=== PATIENT | female | born 1980 | race Caucasian/White ===

== ENCOUNTER 2022-12-31 15:18 | Inpatient (IN) ==
[2022-12-31] MEDS ORDERED: SODIUM CHLORIDE 0.9% 1000ML 500 ML IV ONE (15:43)
[2022-12-31] MEDS ORDERED: ONDANSETRON INJ 2 MG/ML 2 ML VIAL IV STA (15:43)
[2022-12-31] MEDS ORDERED: HYDROmorphone INJ 0.5 MG/0.5 ML SYR IV STA (15:43)
--- NOTE | 2022-12-31 15:45 | Emergency Department Note ---
History of Present Illness General Chief complaint: Urinary Symptoms Stated complaint: KIDNEY STONE, PAIN LEFT SIDE Time Seen by Provider: 12/31/22 15:28 History of Present Illness Maximum Pain Intensity: 5 This is a 42-year-old female with a history of multiple myeloma, Mariella's, hysterectomy, endometrial ablation that presents to the emergency department via private vehicle with complaints of "left flank pain". The patient notes that she noticed last Sunday some hematuria but that seemed to have resolved. She then notes that she presented to a walk-in clinic on the following Sunday and had a urinalysis performed and was informed there is no infection. She denies any known history of kidney stones. She then notes that this past Sunday/ she began with some left flank pain that was brief and then resolved. Then she notes at 6 AM today the pain was severe in the left flank region that prompted her to present to [facility] emergency department in [facility]. She notes that she was evaluated there and had a CT scan performed. The CT scan of the abdomen/pelvis she notes revealed a 7 mm stone. She states that she was provided Flomax, IV analgesia, IV antiemetics, IV hydration and discharged home. She notes that she tried the prescribed medication for her pain as well as nausea medication however continued to vomit. She then presented here for further evaluation and management. The patient denies any fevers but does feel warm. She has associated nausea, vomiting and diarrhea. Home Medications Medication Instructions Recorded Confirmed Type azelastine 137 mcg (0.1 %) nasal 1 spray intranasal BID PRN 12/31/22 12/31/22 History spray aerosol Congestion meclizine 25 mg tablet 25 mg PO Q6H PRN Dizziness 12/31/22 12/31/22 History semaglutide 0.25 mg or 0.5 mg (2 0 mg subcut WK 12/31/22 12/31/22 History mg/3 mL) subcutaneous pen injector Allergies Allergy/AdvReac Type Severity Reaction Status Date / Time carbamazepine [From Tegretol] Allergy Severe Anaphylaxis Verified 12/31/22 17:21 Past Med/Surg History Medical History Hx of multiple myeloma Surgical History History of endometrial ablation Hx of hysterectomy Social History Smoking Status: Never smoker Preferred Language: Kinyarwanda Feels Safe at Home: Yes Review of Systems A total of 10 systems reviewed and were otherwise negative Physical Exam Vital Signs Vital Signs - 24 hr 12/31/22 15:21 12/31/22 15:43 12/31/22 15:45 Temperature 36.6 C Temperature Source Temporal Artery Scan Pulse Rate 98 H Pulse Rate [Finger] 84 Pulse Rate from SpO2 Sensor Respiratory Rate 18 16 Respiratory Effort / Characteristics Non-Labored Spontaneous Respiratory Depth Normal Respiratory Pattern Regular Blood Pressure 115/82 Blood Pressure [Left Arm] 104/66 Blood Pressure Mean 93 Blood Pressure Mean [Left Arm] 78 Pulse Oximetry 100 97 99 Oxygen Delivery Method Room Air Room Air Sepsis Recent Fever Within 48 Hours No Sepsis New/Unexplained Change in Mental Status N/A Sepsis Action Taken by Nursing No Action Required 12/31/22 16:39 12/31/22 15:57 12/31/22 16:00 Temperature Temperature Source Pulse Rate 82 80 Pulse Rate [Finger] Pulse Rate from SpO2 Sensor 81 Respiratory Rate 19 Respiratory Effort / Characteristics Respiratory Depth Respiratory Pattern Blood Pressure 113/81 Blood Pressure [Left Arm] Blood Pressure Mean 91 Blood Pressure Mean [Left Arm] Pulse Oximetry 97 Oxygen Delivery Method Sepsis Recent Fever Within 48 Hours Sepsis New/Unexplained Change in Mental Status Sepsis Action Taken by Nursing 12/31/22 16:00 12/31/22 16:30 12/31/22 16:30 Temperature Temperature Source Pulse Rate 79 73 Pulse Rate [Finger] Pulse Rate from SpO2 Sensor 79 73 Respiratory Rate 20 16 Respiratory Effort / Characteristics Respiratory Depth Respiratory Pattern Blood Pressure 110/66 Blood Pressure [Left Arm] Blood Pressure Mean 81 Blood Pressure Mean [Left Arm] Pulse Oximetry 99 100 Oxygen Delivery Method Sepsis Recent Fever Within 48 Hours Sepsis New/Unexplained Change in Mental Status Sepsis Action Taken by Nursing 12/31/22 17:00 12/31/22 17:13 12/31/22 17:13 Temperature Temperature Source Pulse Rate 69 83 Pulse Rate [Finger] Pulse Rate from SpO2 Sensor 70 78 Respiratory Rate 17 19 Respiratory Effort / Characteristics Respiratory Depth Respiratory Pattern Blood Pressure 95/59 L Blood Pressure [Left Arm] Blood Pressure Mean 75 Blood Pressure Mean [Left Arm] Pulse Oximetry 100 99 Oxygen Delivery Method Sepsis Recent Fever Within 48 Hours Sepsis New/Unexplained Change in Mental Status Sepsis Action Taken by Nursing 12/31/22 17:30 12/31/22 17:31 12/31/22 17:31 Temperature Temperature Source Pulse Rate 94 H 85 Pulse Rate [Finger] Pulse Rate from SpO2 Sensor 94 H 85 Respiratory Rate 17 16 Respiratory Effort / Characteristics Respiratory Depth Respiratory Pattern Blood Pressure 109/62 Blood Pressure [Left Arm] Blood Pressure Mean 74 Blood Pressure Mean [Left Arm] Pulse Oximetry 100 100 Oxygen Delivery Method Sepsis Recent Fever Within 48 Hours Sepsis New/Unexplained Change in Mental Status Sepsis Action Taken by Nursing 12/31/22 18:00 12/31/22 18:00 12/31/22 18:30 Temperature Temperature Source Pulse Rate 92 H Pulse Rate [Finger] Pulse Rate from SpO2 Sensor 88 Respiratory Rate 16 Respiratory Effort / Characteristics Respiratory Depth Respiratory Pattern Blood Pressure 96/60 L 116/67 Blood Pressure [Left Arm] Blood Pressure Mean 78 81 Blood Pressure Mean [Left Arm] Pulse Oximetry 100 Oxygen Delivery Method Sepsis Recent Fever Within 48 Hours Sepsis New/Unexplained Change in Mental Status Sepsis Action Taken by Nursing 12/31/22 18:30 12/31/22 19:03 Temperature Temperature Source Pulse Rate 74 78 Pulse Rate [Finger] Pulse Rate from SpO2 Sensor 74 Respiratory Rate 15 11 L Respiratory Effort / Characteristics Respiratory Depth Respiratory Pattern Blood Pressure Blood Pressure [Left Arm] Blood Pressure Mean Blood Pressure Mean [Left Arm] Pulse Oximetry 99 Oxygen Delivery Method Sepsis Recent Fever Within 48 Hours Sepsis New/Unexplained Change in Mental Status Sepsis Action Taken by Nursing VITAL SIGNS - Vital signs and nursing notes were reviewed. Stable and afebrile. GENERAL -42-year-old female appearing her stated age who is in no acute distress but appears to be in pain. Communicates well with provider and answers questions appropriately. SKIN - Without rashes. No meningeal or petechial rash. HEAD - NC/AT. LUNGS -clear to auscultation. CARDIAC -regular rate and rhythm ABDOMEN - Abdominal contour normal without pulsations or visible masses. No guarding or rigidity. PSYCH - A&O, and cooperates fully with examiner. Pt is very pleasant and interacts well with examiner. Course Administered Medications Discontinued Medications Hydromorphone HCl (Hydromorphone Inj 0.5 Mg/0.5 Ml Syr) 0.5 mg IV NOW STA Stop: 12/31/22 15:44 Last Admin: 12/31/22 15:50 Dose: 0.5 mg Documented By: DINESH Sodium Chloride (Nss 1000ml) 500 mls @ 500 mls/hr IV .Q1H ONE Stop: 12/31/22 16:42 Last Infusion: 12/31/22 18:53 Dose: 0 mls/hr Documented By: Admin: 12/31/22 15:50 Dose: 500 mls/hr Documented By: DINESH Sodium Chloride (Nss 1000ml) 1,000 mls @ 999 mls/hr IV .Q1H1M ONE Stop: 12/31/22 18:43 Last Admin: 12/31/22 19:03 Dose: 999 mls/hr Documented By: DINESH Morphine Sulfate (Morphine Sulfate 2 Mg/Ml Carp) 2 mg IV NOW STA Stop: 12/31/22 17:38 Last Admin: 12/31/22 18:01 Dose: 2 mg Documented By: DINESH Ondansetron HCl (Ondansetron Inj 2 Mg/Ml 2 Ml Vial) 4 mg IV NOW STA Stop: 12/31/22 15:44 Last Admin: 12/31/22 15:50 Dose: 4 mg Documented By: DINESH Medical Decision Making Laboratory Data 12/31/22 16:05 12/31/22 16:05 Lab Results 12/31/22 12/31/22 12/31/22 Range/Units 16:05 16:05 16:06 WBC 7.88 (4.8-10.8) K/ul RBC 4.24 (4.20-5.40) M/uL Hgb 12.8 (12.0-16.0) g/dl Hct 36.9 L (37.0-47.0) % MCV 87.0 (80.0-100.0) fL MCH 30.2 (25.0-34.0) pg MCHC 34.7 (32.0-36.0) g/dL RDW Std Deviation 37.4 (36.4-46.3) fL RDW Coeff of Ayden 11.7 (11.5-14.5) % Plt Count 184 (130-400) K/uL MPV 11.0 (9.4-12.4) fL Immature Gran % (Auto) 0.4 % Neut % (Auto) 86.1 % Lymph % (Auto) 9.3 % [place] % (Auto) 3.9 % Eos % (Auto) 0.0 % Baso % (Auto) 0.3 % Neut # (Auto) 6.79 H (1.40-6.50) K/uL Lymph # (Auto) 0.73 L (1.2-3.4) K/uL [place] # (Auto) 0.31 (0.11-0.59) K/uL Eos # (Auto) 0.00 (0-0.50) K/uL Baso # (Auto) 0.02 (0-0.2) K/uL Immature Gran # (Auto) 0.03 (0.01-0.20) K/uL Sodium 140 (136-145) mmol/L Potassium 4.0 (3.5-5.1) mmol/L Chloride 111 H (98-107) mmol/L Carbon Dioxide 24 (21-32) mmol/L Anion Gap 5 (3-11) BUN 16 (6-23) mg/dl Creatinine 0.68 (0.6-1.2) mg/dl Est Cr Clr Drug Dosing 95.0 ml/min Est GFR ( Amer) 123.3 ml/min Est GFR (Non-Af Amer) 106.4 ml/min BUN/Creatinine Ratio 23.5 H (10-20) Glucose 103 H (70-99(Fasting)) mg/dl Calcium 8.6 (8.6-10.3) mg/dl Total Bilirubin 0.4 (0.2-1.0) mg/dl AST 13 (13-39) U/L ALT 10 (7-52) U/L Alkaline Phosphatase 43 (34-104) U/L Total Protein 6.3 (6.0-8.3) gm/dl Albumin 4.0 (3.4-5.0) gm/dl Globulin 2.3 L (2.5-4.0) gm/dl Albumin/Globulin Ratio 1.7 (0.9-2) Urine Color Mower Urine Appearance Cloudy A (Clear) Urine pH 5.5 (4.5-7.5) Ur Specific [place] 1.026 (1.000-1.030) Urine Protein 2+ H (Negative) Urine Glucose (UA) Negative (Negative) Urine Ketones Negative (Negative) Urine Blood 3+ H (Negative) Urine Nitrite Negative (Negative) Urine Bilirubin Negative (Negative) Urine Urobilinogen Negative (Negative) Ur Leukocyte Esterase 1+ H (Negative) Urine WBC (Auto) 10-30 H (0-5) /hpf Urine RBC (Auto) >30 H (0-4) /hpf U Hyaline Cast (Auto) 1-5 (0-5) /lpf U Epithel Cells (Auto) 20-30 H (0-5) /lpf Urine Bacteria (Auto) Negative (Negative) SARS-CoV-2, RNA, NAAT (NEGATIVE) 12/31/22 Range/Units 18:02 WBC (4.8-10.8) K/ul RBC (4.20-5.40) M/uL Hgb (12.0-16.0) g/dl Hct (37.0-47.0) % MCV (80.0-100.0) fL MCH (25.0-34.0) pg MCHC (32.0-36.0) g/dL RDW Std Deviation (36.4-46.3) fL RDW Coeff of Ayden (11.5-14.5) % Plt Count (130-400) K/uL MPV (9.4-12.4) fL Immature Gran % (Auto) % Neut % (Auto) % Lymph % (Auto) % [place] % (Auto) % Eos % (Auto) % Baso % (Auto) % Neut # (Auto) (1.40-6.50) K/uL Lymph # (Auto) (1.2-3.4) K/uL [place] # (Auto) (0.11-0.59) K/uL Eos # (Auto) (0-0.50) K/uL Baso # (Auto) (0-0.2) K/uL Immature Gran # (Auto) (0.01-0.20) K/uL Sodium (136-145) mmol/L Potassium (3.5-5.1) mmol/L Chloride (98-107) mmol/L Carbon Dioxide (21-32) mmol/L Anion Gap (3-11) BUN (6-23) mg/dl Creatinine (0.6-1.2) mg/dl Est Cr Clr Drug Dosing ml/min Est GFR ( Amer) ml/min Est GFR (Non-Af Amer) ml/min BUN/Creatinine Ratio (10-20) Glucose (70-99(Fasting)) mg/dl Calcium (8.6-10.3) mg/dl Total Bilirubin (0.2-1.0) mg/dl AST (13-39) U/L ALT (7-52) U/L Alkaline Phosphatase (34-104) U/L Total Protein (6.0-8.3) gm/dl Albumin (3.4-5.0) gm/dl Globulin (2.5-4.0) gm/dl Albumin/Globulin Ratio (0.9-2) Urine Color Urine Appearance (Clear) Urine pH (4.5-7.5) Ur Specific [place] (1.000-1.030) Urine Protein (Negative) Urine Glucose (UA) (Negative) Urine Ketones (Negative) Urine Blood (Negative) Urine Nitrite (Negative) Urine Bilirubin (Negative) Urine Urobilinogen (Negative) Ur Leukocyte Esterase (Negative) Urine WBC (Auto) (0-5) /hpf Urine RBC (Auto) (0-4) /hpf U Hyaline Cast (Auto) (0-5) /lpf U Epithel Cells (Auto) (0-5) /lpf Urine Bacteria (Auto) (Negative) SARS-CoV-2, RNA, NAAT NEGATIVE (NEGATIVE) Imaging Data Radiologist's Impression: KUB X-Ray 12/31/22 17:37 KUB CLINICAL HISTORY: Left flank pain. FINDINGS: 2 AP supine abdominal radiographs are obtained. No prior studies are available for comparison at the time of dictation. There is a nonobstructed abdominal bowel gas pattern. No evidence of intraperitoneal free air is seen on these supine images. There are no abnormal abdominal calcifications. Phleboliths are seen throughout the pelvis. The bony structures appear intact. IMPRESSION: 1. No acute abnormality is identified. 2. The presence of numerous pelvic phleboliths could obscure a vesicoureteral stone. If there is concern for nephrolithiasis, a renal ultrasound could be considered to assess for hydronephrosis. Electronically signed by: Damián Boyer M.D. 12/31/2022 6:41 PM MDM Narrative Patient was seen and evaluated as above in room B05. Review was performed of triage nursing notes and vital signs. Patient notes that she was seen earlier today at [facility] emergency department in [place]. I did have our staff attempt to obtain record from that visit as well as the imaging report. After obtaining a thorough history and physical examination the above work up was performed. Patient has left flank pain in the setting of recent 7 mm ureteral calculus diagnosis. Patient clinically well-appearing and nontoxic but appears to be in pain. Options of care were discussed with the patient. IV access was established. Labs were drawn. There is no leukocytosis or concerning anemia. No emergent metabolic disturbance. Urinalysis reveals evidence of kidney stone but no clear evidence of infection. No signs of sepsis. I was able to obtain the record from [facility] emergency department and this was reviewed. CT scan reveals 7 mm calculus at the distal left ureter versus 2 adjacent calculi with mild left hydronephrosis per review of the CT scan performed at [facility] and dictated at 9:23 AM by radiology. KUB was obtained here. Numerous pelvic phleboliths noted making it difficult to differentiate stone. I do not believe that a repeat CT scan at this time is needed. Patient did require IV analgesia here. She also required IV antiemetics and IV fluids. Options were discussed and regarding inpatient versus outpatient management. At this time noting return of discomfort despite IV analgesia both here and provided earlier today and her earlier ED visit as well as try to take meds at home now with vomiting I do believe that further evaluation and management is warranted in the inpatient setting. Case discussed with the hospitalist service. I did discuss the case with urology, Dr. Whitaker. Patient will be n.p.o. after midnight and urology w ill be consulted. No indication for emergent intervention this evening. Patient amenable to plan of care. In the evaluation and treatment of this patient the following differential diagnoses were entertained: Pyelonephritis, UTI, ureteral obstruction, kidney stone, diverticulitis, among others Impression & Plan Acute left flank pain, Left ureteral calculus, Nausea & vomiting, Hydronephrosis of left kidney Discharge Plan Visit Data Chief Complaint: Urinary Symptoms Stated Complaint: KIDNEY STONE, PAIN LEFT SIDE ED Provider: Getachew Reed ED Midlevel Provider: Santos Knight Discharge Problem: Acute left flank pain, Left ureteral calculus, Nausea & vomiting, Hydronephrosis of left kidney Patient Disposition: Admitted As Inpatient Condition: Good Forms Stand Alone Forms: [employer] Prescriptions Prescriptions: No Action meclizine 25 mg tablet 25 mg PO Q6H PRN (Reason: Dizziness) azelastine 137 mcg (0.1 %) aerosol,spray 1 spray INTRANASAL BID PRN (Reason: Congestion) semaglutide 0.25 mg or 0.5 mg (2 mg/3 mL) Pen Injector 0 mg SUBCUT WK Rx Instructions: SUNDAYS--PT UNSURE OF DOSE/STRENGTH. Referrals Referrals: PCP,NO [Physician] -
[2022-12-31 16:24] LABS: Basophils # (auto) 0.02 K/uL (0-0.2); Basophils % (auto) 0.3 %; Hematocrit (blood only) 36.9 % (37.0-47.0); Hemoglobin 12.8 g/dl (12.0-16.0); Immature Granulocytes # (auto) 0.03 K/uL (0.01-0.20); Immature Granulocytes % (auto) 0.4 %; Lymphocytes # (auto) 0.73 K/uL (1.2-3.4); Lymphocytes % (auto) 9.3 %; Mean Corpuscular Hemoglobin 30.2 pg (25.0-34.0); Mean Corpuscular Hgb Conc 34.7 g/dL (32.0-36.0); Monocytes # (auto) 0.31 K/uL (0.11-0.59); Monocytes % (auto) 3.9 %; Neutrophils # (auto) 6.79 K/uL (1.40-6.50); Neutrophils % (auto) 86.1 %; Platelet Count 184 K/uL (130-400); RDW Coefficient of Variation 11.7 % (11.5-14.5); RDW Standard Deviation 37.4 fL (36.4-46.3); Red Blood Count 4.24 M/uL (4.20-5.40); White Blood Count 7.88 K/ul (4.8-10.8)
[2022-12-31 16:33] LABS: Appearance Urine Cloudy (Clear); Bacteria Urine Automated Negative (Negative); Bilirubin Urine Negative (Negative); Blood Urine 3+ (Negative); Color Urine Orange; Epithelial Cell Urine Auto 20-30 /lpf (0-5); Glucose Urine UA Negative (Negative); Ketones Urine Negative (Negative); Leukocyte Esterase Urine 1+ (Negative); Nitrite Urine Negative (Negative); Protein Urine 2+ (Negative); RBC Urine Automated >30 /hpf (0-4); Specific Gravity Urine 1.026 (1.000-1.030); Urobilinogen Urine Negative (Negative); pH Urine 5.5 (4.5-7.5)
[2022-12-31 16:40] LABS: Albumin Globulin Ratio 1.7 (0.9-2); BUN Creatinine Ratio 23.5 (10-20); Bilirubin,Total 0.4 mg/dl (0.2-1.0); Calcium 8.6 mg/dl (8.6-10.3); Est GFR (African American) 123.3 ml/min; Est GFR (Non-African American) 106.4 ml/min; Globulin 2.3 gm/dl (2.5-4.0); Total Protein 6.3 gm/dl (6.0-8.3)
[2022-12-31] MEDS ORDERED: MoRPHine SULFATE 2 MG/ML CARP IV STA (17:37)
[2022-12-31] MEDS ORDERED: SODIUM CHLORIDE 0.9% 1000ML 1,000 ML IV ONE (17:43)
--- NOTE | 2022-12-31 18:19 | History & Physical Report ---
Date of Service December 31, 2022 Assessment & Plan (1) Left ureteral calculus: Plan: 7mm obstructing left ureterolithiasis No WBC, fever or bacteria on urine microscopy to warrant antibiotics Continue IV fluids Tamsulosin 0.4mg PO daily Consult urology Pain: 1st line - acetaminophen 2nd line - Toradol 3rd line - morphine (2) Hydronephrosis of left kidney: Plan VTE Prophylaxis - low risk Diet - regular, NPO after midnight Disposition - admit to med/surg Admission and Anticipated Discharge Date Admission Date: December 31, 2022 History of Present Illness Chief Complaint: Left flank pain Primary Care Provider: Rio Sylvester Nancy Gamez is a 42 year old female who presents to the ER with left sided flank pain and hematuria. She reports symptoms started last Sunday when she woke up with blood in urine with no pain at that time. Because she had no pain she waited until Sunday to go to urgent care and UA was not suggestive of infection. They recommended going to the emergency room if she had any pain. Her left sided flank pain started on Sunday with severe pain for 20 minutes - because it subsided she decided to stay home again. Since then she has had intermittent hematuria episodes. This morning she woke up in such severe pain so went to [facility] [place] emergency room. She was diagnosed with a 7mm distal obstructing ureterolithiasis. No urology cover was available therefore she was sent home with pain medications and tamsulosin and advised to follow up with urology. She reports constant pain all of today with only slight relief from intravenous pain medication. It is the worst pain she has ever had, severity 10/10. Associated hematuria, nausea, vomiting, chills but no objective fever. No dysuria. Due to persistent pain she came back to the ER here due to urology coverage. Allergies Allergy/AdvReac Type Severity Reaction Status Date / Time carbamazepine [From Tegretol] Allergy Severe Anaphylaxis Verified 12/31/22 17:21 Home Medications Medication Instructions Recorded Confirmed Type azelastine 137 mcg (0.1 %) nasal 1 spray intranasal BID PRN 12/31/22 12/31/22 History spray aerosol Congestion meclizine 25 mg tablet 25 mg PO Q6H PRN Dizziness 12/31/22 12/31/22 History semaglutide 0.25 mg or 0.5 mg (2 0 mg subcut WK 12/31/22 12/31/22 History mg/3 mL) subcutaneous pen injector Past Med/Surg History Medical History Hx of multiple myeloma Surgical History History of endometrial ablation Hx of hysterectomy Social History Smoking Status: Former smoker Do You Dip or Chew Tobacco: No; Hx Alcohol Use: No Hx Substance Use: No Preferred Language: [employer] Representative Required: No Beliefs That Will Affect Care: None Current Living Situation: Spouse and Family Other Information That Helps Us Care for You: No Feels Safe at Home: Yes Safety Concerns: Feels Safe At This Time Assistive Devices: Glasses Review of Systems Review of Systems: All systems reviewed & are unremarkable except as noted in HPI & below Physical Exam Constitutional: WD/WN, vitals as above Respiratory: normal respiratory effort, lungs clear to auscultation Cardiovascular: RRR, no murmur, no edema Gastrointestinal (Abdomen): normal bowel sounds, soft, nontender, no hepatosplenomegaly Skin: no rashes, warm and dry Psychiatric: A+Ox3, euthymic affect Genitourinary: + CVA tenderness (left) Results & Data Results & Data Vital Signs (Past 12 Hours) Vital Signs Temp Pulse Pulse Resp BP BP Pulse Ox 12/31/22 16:39 82 12/31/22 15:45 84 16 104/66 99 12/31/22 15:43 97 12/31/22 15:21 36.6 C 98 H 18 115/82 100 O2 Del Method 12/31/22 16:39 12/31/22 15:45 Room Air 12/31/22 15:43 Room Air 12/31/22 15:21 Laboratory Results Abnormal lab results 12/31/22 12/31/22 12/31/22 Range/Units 16:05 16:05 16:06 Hct 36.9 L (37.0-47.0) % Neut # (Auto) 6.79 H (1.40-6.50) K/uL Lymph # (Auto) 0.73 L (1.2-3.4) K/uL Chloride 111 H (98-107) mmol/L BUN/Creatinine Ratio 23.5 H (10-20) Glucose 103 H (70-99(Fasting)) mg/dl Globulin 2.3 L (2.5-4.0) gm/dl Urine Appearance Cloudy A (Clear) Urine Protein 2+ H (Negative) Urine Blood 3+ H (Negative) Ur Leukocyte Esterase 1+ H (Negative) Urine WBC (Auto) 10-30 H (0-5) /hpf Urine RBC (Auto) >30 H (0-4) /hpf U Epithel Cells (Auto) 20-30 H (0-5) /lpf Diagnostic Findings KUB CLINICAL HISTORY: Left flank pain. FINDINGS: 2 AP supine abdominal radiographs are obtained. No prior studies are available for comparison at the time of dictation. There is a nonobstructed abdominal bowel gas pattern. No evidence of intraperitoneal free air is seen on these supine images. There are no abnormal abdominal calcifications. Phleboliths are seen throughout the pelvis. The bony structures appear intact. IMPRESSION: 1. No acute abnormality is identified. 2. The presence of numerous pelvic phleboliths could obscure a vesicoureteral stone. If there is concern for nephrolithiasis, a renal ultrasound could be considered to assess for hydronephrosis. Medications Administered ER Medications Given: Dialudid 0.5mg IV Ondansetron 4mg IV NSS 500ml IV bolus Morphine 2mg IV Code Status & VTE Plan Code Status Full VTE Prophylaxis Plan VTE Prophylaxis will be ordered: No PG Care Time/CCT Total # of Minutes Spent Total Time Spent with Patient: Total time spent is greater than 50% in coordination of care (as documented) at patient's floor/unit and/or counseling patient: Coding Level of Care Code 55316 INT INP/OBS CARE 2/55MIN Diagnoses Left ureteral calculus N20.1 Hydronephrosis of left kidney N13.30
--- NOTE | 2022-12-31 18:42 | XRay Report ---
KUB CLINICAL HISTORY: Left flank pain. FINDINGS: 2 AP supine abdominal radiographs are obtained. No prior studies are available for comparis on at the time of dictation. There is a nonobstructed abdominal bowel gas pattern. No evidence of int raperitoneal free air is seen on these supine images. There are no abnormal abdominal calcifications. Phleboliths are seen throughout the pelvis. The bony structures appear intact. IMPRESSION: 1. No acute abnormality is identified. 2. The presence of numerous pelvic phleboliths could obscure a vesicoureteral stone. If there is conc cassandra for nephrolithiasis, a renal ultrasound could be considered to assess for hydronephrosis. Electronically signed by: Damián Boyer M.D. 12/31/2022 6:41 PM
[2022-12-31] MEDS ORDERED: LACTATED RINGER'S 1,000 ML IV SCH (22:24)
[2022-12-31] MEDS ORDERED: ACETAMINOPHEN 325 MG TAB PO PRN (22:24)
[2022-12-31] MEDS ORDERED: ONDANSETRON INJ 2 MG/ML 2 ML VIAL IV PRN (22:24)
[2022-12-31] MEDS: KETOROLAC TROMETHAMINE 15 MG/ML VIAL IV PRN (22:45)
[2022-12-31] MEDS ORDERED: Nursing to Pharmacy Communication SCH (23:15)
[2022-12-31] MEDS ORDERED: PLASMA-LYTE A 1,000 ML IV SCH (23:30)
[2022-12-31] MEDS: MoRPHine SULFATE 4 MG/ML 1 ML CARP\\VIAL IV PRN (23:34)
[2023-01-01] MEDS: MoRPHine SULFATE 4 MG/ML 1 ML CARP\\VIAL IV PRN ×2 (03:56→08:19)
[2023-01-01] MEDS ORDERED: ONDANSETRON INJ 2 MG/ML 2 ML VIAL IV PRN (04:22)
[2023-01-01] MEDS: KETOROLAC TROMETHAMINE 15 MG/ML VIAL IV PRN (05:45)
[2023-01-01] MEDS ORDERED: CIPROFLOXACIN / D5W 400 MG/200 ML BAG IV SCH (07:15)
[2023-01-01] MEDS ORDERED: SODIUM CHLORIDE 0.9% 1000ML 1,000 ML IV SCH (07:15)
--- NOTE | 2023-01-01 08:28 | Urology Consultation ---
Date of Consultation January 01, 2023 Assessment & Plan (1) Acute left flank pain: (2) Left ureteral calculus: 42-year-old female admitted for acute left flank pain secondary to known 7 mm left ureteral calculus. Patient is afebrile and hemodynamically stable. Labs on arrival - Creatinine normal, no leukocytosis - continue to trend labs. Urine culture preliminary no growth. Currently on IV ciprofloxacin. Denies stone passage overnight - continues to have intermittent flank discomfort, moderate to severe. Check CALLI today. We discussed options for stone management including trial of passage vs surgical intervention. Discussed inpatient surgical options including cystoscopy and left ureteral stent placement. Discussed that stone may need to be treated at a later date. Discussed outpatient options including ESWL or ureteroscopy, laser lithotripsy, and stent placement if pain is controlled. Procedures, success rates, risks, benefits and clinical courses reviewed. Stone free rates were also discussed as well as possibility of multiple procedures. Ureteral stents were discussed as well as post-operative issues and pain management. - Patient would like to proceed with surgical intervention today. - Plan for cystoscopy, retrograde pyelogram, left ureteral stent placement and possible stone treatment. - Risks and benefits of procedure to be reviewed with patient by Dr. Calderon. - Will cover with scheduled IV ciprofloxacin preoperatively. - Patient in agreement with plan, all questions answered. - Strain all urine. Keep NPO for procedure. - Continue supportive care and management per hospital medicine. History of Present Illness Attending Physician: Chivo Regalado MD History of Present Illness 42-year-old female with PMHx of multiple myeloma and hysterectomy presented to the emergency department on 12/31/22 with left flank pain secondary to a known left-sided obstructing ureteral stone. Patient initially presented to [facility] emergency department for left flank pain and hematuria and a CT scan was performed. Per admitting notes, CT showed a 7 mm distal left ureteral calculus. She was discharged from [facility] ED. She presented to [facility] ED with worsening left flank pain, nausea and vomiting. She was afebrile and hemodynamically stable in the ED. Labs showed creatinine 0.68, WBC 7.88, and Hgb 12.8. Urinalysis notable for 2+ protein, 3+ blood, 1+ leukocyte esterase, 10-30 WBC, >30 RBC, 20-30 epithelials, negative for bacteria and nitrates. Urine culture obtained and pending. COVID testing negative. KUB imaging in ED showed numerous pelvic phleboliths present which obscure suspected UVJ stone. ED course included IV fluids, morphine, hydromorphone, and Zofran. She was admitted to the hospital medicine service. Urology is consulted for left ureteral calculus. Chart review: Afebrile, no new labs this am at time of visit. Urine culture prelim no growth. On IV Cipro. Patient seen and examined at bedside this morning. She is awake and resting in bed. Reports intermittent left flank discomfort, relieved with IV analgesia. Nausea this morning, no vomiting. Voiding without difficulty, no dysuria or hem aturia. No fever or chills at present. No chest pain or shortness of breath. NPO since midnight. No prior stone surgeries. May have spontaneously passed stone in the past per her report. Allergies Allergy/AdvReac Type Severity Reaction Status Date / Time carbamazepine [From Tegretol] Allergy Severe Anaphylaxis Verified 12/31/22 17:21 Home Medications Medication Instructions Recorded Confirmed Type azelastine 137 mcg (0.1 %) nasal 1 spray intranasal BID PRN 12/31/22 12/31/22 History spray aerosol Congestion meclizine 25 mg tablet 25 mg PO Q6H PRN Dizziness 12/31/22 12/31/22 History semaglutide 0.25 mg or 0.5 mg (2 0 mg subcut WK 12/31/22 12/31/22 History mg/3 mL) subcutaneous pen injector Patient History Medical History Hx of multiple myeloma Surgical History History of endometrial ablation Hx of hysterectomy Social History Smoking Status: Former smoker Do You Dip or Chew Tobacco: No; Hx Alcohol Use: No Hx Substance Use: No Preferred Language: Mexican [employer] Required: No Beliefs That Will Affect Care: None Current Living Situation: Spouse and Family Other Information That Helps Us Care for You: No Feels Safe at Home: Yes Safety Concerns: Feels Safe At This Time Assistive Devices: Glasses Review of Systems Review of Systems: All systems reviewed & are unremarkable except as noted in HPI & below Physical Exam Constitutional: well developed and well nourished; no acute distress and not ill appearing Eyes: no scleral abnormality Neck: normal visual inspection Respiratory: normal respiratory effort and able to speak in complete sentences; no respiratory distress and no labored breathing Cardiovascular: Extremities: no pedal edema Gastrointestinal (Abdomen): Inspection/Auscultation: abdomen normal to inspection; abdomen not distended Percussion/Palpation: abdomen soft; abdomen nontender and no guarding Musculoskeletal: Head/Neck/Chest: normocephalic Skin: no rashes noted to exposed skin Neurologic: moves all extremities and awake Psychiatric: Orientation: alert, oriented x 3 and cooperative Genitourinary: + CVA tenderness (mild tenderness to palpation over left flank ) Results & Data Vital Signs (Past 12 Hours) Vital Signs Temp Pulse Pulse Resp BP BP Pulse Ox 01/01/23 07:10 36.4 C L 68 16 95/66 L 95 01/01/23 04:28 36.6 C 72 18 98/62 L 99 12/31/22 22:25 36.8 C 102 H 18 93/56 L 98 12/31/22 21:00 74 21 100 12/31/22 21:00 98/64 L 12/31/22 20:30 82 24 78 L 12/31/22 20:30 110/63 O2 Del Method 01/01/23 07:10 Room Air 01/01/23 04:28 Room Air 12/31/22 22:25 Room Air 12/31/22 21:00 12/31/22 21:00 12/31/22 20:30 12/31/22 20:30 PG Care Time/CCT Total # of Minutes Spent Total Time Spent with Patient: Total time spent is greater than 50% in coordination of care (as documented) at patient's floor/unit and/or counseling patient: Coding Level of Care Code 87685 IN/OBS CONSULT LVL 3,45M Diagnoses Acute left flank pain R10.9 Left ureteral calculus N20.1 Time Spent (min) 50
[2023-01-01] MEDS ORDERED: TAMSULOSIN HCL 0.4 MG CAP PO SCH (09:00)
--- NOTE | 2023-01-01 09:26 | Ultrasound Report ---
RENAL ULTRASOUND CLINICAL HISTORY: Left distal ureteral stone. COMPARISON STUDY: KUB December 31, 2022. TECHNIQUE: Sonography of the kidneys and the urinary bladder was performed. FINDINGS: The right kidney measures 10.6 x 5.1 x 4.9 cm and the left measures 11.3 x 5.5 x 4.6 cm. Th ere is no right hydronephrosis. Possible 4 mm right renal calculus. There is mild to moderate left hy droureteronephrosis. No ureteral calculi are identified although these may be occult by sonography. U reteral jets were not visualized. IMPRESSION: 1. Mild to moderate left hydroureteronephrosis. No ureteral calculi identified although these may be occult by sonography. 2. Possible 4 mm right renal calculus. No right hydronephrosis. ACT 112: Negative or not required by law. Electronically signed by: Irving Leslie M.D. 01/01/2023 9:24 AM
[2023-01-01] MEDS ORDERED: DIATRIZOATE MEGLUMINE 30% 100ML VIAL INSTIL PRN (10:52)
--- NOTE | 2023-01-01 11:12 | Anesthesiology Consultation ---
Date of Service January 01, 2023 Assessment & Plan (1) Encounter for pre-operative examination: Chart Review Chart Review: Acceptable Risk for Surgery History Surgery Operation Date: 01/01/23 09:40 Proposed Procedures p Cystoscopy Retrograde Pyelogram and Left Stent Placement, Possible Stone Treatment - Sagar Calderon, Height/Weight Height: 5 ft 5 in Weight: 65 kg Allergies Allergy/AdvReac Type Severity Reaction Status Date / Time carbamazepine [From Tegretol] Allergy Severe Anaphylaxis Verified 12/31/22 17:21 Medications Home Medications Medication Instructions Recorded Confirmed Last Taken azelastine 137 mcg (0.1 %) nasal 1 spray intranasal BID PRN 12/31/22 12/31/22 Unknown spray aerosol Congestion meclizine 25 mg tablet 25 mg PO Q6H PRN Dizziness 12/31/22 12/31/22 Unknown semaglutide 0.25 mg or 0.5 mg (2 0 mg subcut WK 12/31/22 12/31/22 12/24/22 mg/3 mL) subcutaneous pen injector Active Medications Generic Name Dose Route Start Last Admin Trade Name Freq PRN Reason Stop Dose Admin Sodium Chloride 1,000 mls @ 100 mls/hr 01/01/23 07:15 01/01/23 08:12 Nss 1000ml IV 01/31/23 07:14 100 mls/hr .Q10H PARESH Administration Ciprofloxacin 400 mg in 200 mls @ 100 mls/hr 01/01/23 07:15 01/01/23 08:12 Cipro / D5w IV 01/11/23 07:14 100 mls/hr Q12H PARESH Administration Protocol Ketorolac Tromethamine 15 mg 12/31/22 22:24 01/01/23 05:45 Ketorolac Tromethamine 15 Mg/Ml Vial IV 01/05/23 22:23 15 mg Q6H PRN Administration Pain Morphine Sulfate 2 - 4 mg 12/31/22 22:24 01/01/23 08:19 Morphine Sulfate 4 Mg/Ml 1 Ml Carp\Vial IV 01/14/23 22:23 4 mg Q4H PRN Administration Pain Ondansetron HCl 4 mg 01/01/23 04:22 01/01/23 10:02 Ondansetron Inj 2 Mg/Ml 2 Ml Vial IV 01/30/23 22:23 4 mg Q4H PRN Administration Nausea Tamsulosin HCl 0.4 mg 01/01/23 09:00 01/01/23 08:11 Tamsulosin Hcl 0.4 Mg Cap PO 01/31/23 08:59 0.4 mg QAM PARESH Administration NPO Date Last Intake of Fluids: 12/31/22 Date Last Intake of Solids: 12/31/22 Past Medical History Medical History Hx of multiple myeloma Past Surgical History Surgical History History of endometrial ablation Hx of hysterectomy Social History Smoking Status: Former smoker Do You Dip or Chew Tobacco: No Hx Alcohol Use: No Hx Substance Use: No substance use type: does not use Physical Exam Vital Signs Last Vital Signs Temp 36.4 C L 01/01/23 07:10 Pulse 68 01/01/23 07:10 Resp 16 01/01/23 07:10 BP 95/66 L 01/01/23 07:10 Pulse Ox 95 01/01/23 07:10 O2 Del Method Room Air 01/01/23 07:10 Testing Laboratory Results 12/31/22 16:05 12/31/22 16:05 Urine Color [place] 12/31/22 16:06 Urine Appearance Cloudy (Clear) A 12/31/22 16:06 Urine pH 5.5 (4.5-7.5) 12/31/22 16:06 Ur Specific [place] 1.026 (1.000-1.030) 12/31/22 16:06 Urine Protein 2+ (Negative) H 12/31/22 16:06 Urine Glucose (UA) Negative (Negative) 12/31/22 16:06 Urine Ketones Negative (Negative) 12/31/22 16:06 Urine Nitrite Negative (Negative) 12/31/22 16:06 Ur Leukocyte Esterase 1+ (Negative) H 12/31/22 16:06 Urine WBC (Auto) 10-30 /hpf (0-5) H 12/31/22 16:06 Urine RBC (Auto) >30 /hpf (0-4) H 12/31/22 16:06 U Hyaline Cast (Auto) 1-5 /lpf (0-5) 12/31/22 16:06 U Epithel Cells (Auto) 20-30 /lpf (0-5) H 12/31/22 16:06 Urine Bacteria (Auto) Negative (Negative) 12/31/22 16:06 12/31/22 16:06 Urine Culture - Preliminary Urine,Clean Catch No growth - Less than 1,000 colonies/mL, Final report to follow.
[2023-01-01] MEDS ORDERED: PROMETHAZINE HCL 12.5 MG in SODIUM CHLORIDE 0.9% 50 ML IV PRN (11:20)
[2023-01-01] MEDS ORDERED: ATROPINE SULFATE 0.1 MG/ML 10ML SYR IV PRN (11:20)
[2023-01-01] MEDS ORDERED: fentaNYL citrate PF 100 MCG/2 ML VIAL IV PRN (11:20)
[2023-01-01] MEDS ORDERED: fentaNYL citrate PF 100 MCG/2 ML VIAL ONE (11:52)
[2023-01-01] MEDS ORDERED: MIDAZOLAM HCL 1 MG/ML 2ML VIAL ONE (11:52)
[2023-01-01] MEDS ORDERED: LIDOCAINE 2% 2 ML VIAL/AMP(20MG/ML) INFIL ONE (12:12)
[2023-01-01] MEDS ORDERED: ONDANSETRON INJ 2 MG/ML 2 ML VIAL ONE (12:19)
[2023-01-01] MEDS ORDERED: KETOROLAC 30 MG/ML VIAL ONE (12:19)
[2023-01-01] MEDS ORDERED: PROPOFOL IV EMULSION 10 MG/ML 20 ML VIAL IV ONE (12:19)
--- NOTE | 2023-01-01 12:27 | Operative Report ---
PG Post Operative Report Pre & Post Diagnosis Left Ureteral stone Same Operation Date: 01/01/23 09:40 <No data on this case meets the specified criteria> I identified the patient and participated in the time-out.: Yes Procedure Cystoscopy with left ureteroscopy, ureteral dilation, retrograde pyelogram, stone basket extraction, and stent placement Operation Date: 01/01/23 09:40 <No data on this case meets the specified criteria> Surgeon Sagar Calderon, II, DO Records Management Specialist None Estimated Blood Loss 1 Findings Consistent with Post-Op Diagnosis Left ureteral stone in 3 fragments removed and sent for analysis. Stricture distal to the stone near the UO. Specimens Stone Fragments left ureter Drains 6 Fr Multilength Anesthesia Type General Complications none Disposition Disposition: Recovery Room Indications Patient with bothersome stones. Risks and benefits discussed at length. Description of Procedure Patient was consented and brought back to the operating room. Patient was placed under anesthesia in the supine position and moved to the dorsal lithotomy position. Patient was prepped and draped in the regular sterile fashion. A time out was completed. A 30degree Cystoscope was placed into the bladder and the entire bladder was examined. The UO's were identified. The UO was cannulized with a catheter and a retrograde pyelogram was completed. A wire was then placed. The Rigid ureteroscope was taken into the ureter. The stone was identified. Just distal to the stone was an area of narrowing. This had to be dilated. Once the dilation was complete the scope was able advanced to the location of the stone. The stone was found to be in 3 different fragments. The larger fragments were grasped and removed and sent for analysis. The entire area was once again examined. No residual large fragments or areas of concern were noted. The scope was slowly removed with the wire left in place. Contrast was placed through the scope for a pyelogram to assist in stent placement. The entire ureter was examined as the scope was slowly removed. No obstructions or other areas of concern were noted. With the wire in place, a 6 Fr Double J stent was placed. It was confirmed with fluoroscopy. With the stent in place, the bladder was emptied. The scope was removed. The patient was cleaned, aroused from anesthesia, and transferred to the pacu in stable condition having tolerated the procedure well with no complications. I was present and participated in all aspects of the procedure. The patient will be monitored in the PACU until transferred. We will plan to remove the stent in approximately 5 days in the office. I attest to the content of the Intraoperative Record and any orders documented therein. Any exceptions are noted below.
--- NOTE | 2023-01-01 12:45 | Hospitalist Progress Note ---
Date of Service January 01, 2023 Assessment & Plan (1) Left ureteral calculus: Plan: 7mm obstructing left ureter stone with resultant left hydronephrosis. Urology consultation appreciated. Cystoscopy and left stent placement later today, January 01. Intravenous Cipro has been started, day 1. Continue tamsulosin. (2) Hydronephrosis of left kidney: Plan: Monitor intake and output. Daily renal function. Plan Hopefully home tomorrow, January 02 Admission and Anticipated Discharge Date Admission Date: December 31, 2022 Subjective Alert and oriented. No acute distress. Awaiting urology intervention with cystoscopy and left ureter stent placement later today. Continue IV fluids. Intravenous Cipro started. Will monitor daily lab work. She probably will go home tomorrow, January 02 Review of Systems Review of Systems: Constitutional-no fever or chills ENT-no blurred vision, no double vision, no epistaxis, no sore throat Respiratory-no cough, no wheezing, no shortness of breath Cardiac-no palpitations, no chest pain, no syncope GI-no nausea, vomiting, diarrhea, melena, hematochezia -intermittent left flank pain from left ureter stone. Musculoskeletal-no joint pain, no muscle tenderness Skin-no bruising, no rashes, no pruritus Neuro-no isolated weakness, no paresthesia, no weakness Psych-no depression, no anxiety Physical Exam Physical Exam: General-alert and oriented x3, no fevers, no chills HEENT-head atraumatic and normocephalic, pupils equal and reactive to light, extraocular muscles intact Neck-no lymphadenopathy or thyromegaly, trachea midline Chest-clear to auscultation percussion. No rales wheezing or rhonchi Cardiac-regular rate and rhythm, normal S1 and S2 Abdomen-normal bowel sounds, nontender, no hepatosplenomegaly Extremities-no cyanosis, clubbing, or edema Neuro-cranial nerves II through XII intact, motor and sensory function within normal limits, strength symmetrical , no focal deficits Psych-normal affect, normal mood Results & Data Results & Data Vital Signs (Past 12 Hours) Vital Signs Temp Pulse Resp BP Pulse Ox O2 Del Method 01/01/23 11:12 36.7 C 77 18 117/59 L 99 Room Air 01/01/23 07:10 36.4 C L 68 16 95/66 L 95 Room Air 01/01/23 04:28 36.6 C 72 18 98/62 L 99 Room Air Laboratory Results 12/31/22 16:05 12/31/22 16:05 PG Care Time/CCT Total # of Minutes Spent Total Time Spent with Patient: Total time spent is greater than 50% in coordination of care (as documented) at patient's floor/unit and/or counseling patient: Coding Level of Care Code 82801 SUB INP/OBS CARE 3/50MIN Diagnoses Left ureteral calculus N20.1 Hydronephrosis of left kidney N13.30
--- NOTE | 2023-01-01 12:59 | Anesthesiology Progress Note ---
Date of Service January 01, 2023 Anesthesia Post Procedure Vital Signs Vital Signs: Temp Pulse Pulse Pulse Resp BP BP 01/01/23 12:50 72 16 108/64 01/01/23 12:40 82 14 105/53 L 01/01/23 12:33 36.3 C L 88 14 102/59 L 01/01/23 11:12 36.7 C 77 18 117/59 L 01/01/23 07:10 36.4 C L 68 16 95/66 L 01/01/23 04:28 36.6 C 72 18 98/62 L 12/31/22 22:25 36.8 C 102 H 18 93/56 L 12/31/22 21:00 74 21 12/31/22 21:00 98/64 L 12/31/22 20:30 82 24 12/31/22 20:30 110/63 12/31/22 20:00 83 15 12/31/22 20:00 105/57 L 12/31/22 19:30 77 13 12/31/22 19:03 78 11 L 12/31/22 18:30 74 15 12/31/22 18:30 116/67 12/31/22 18:00 92 H 16 12/31/22 18:00 96/60 L 12/31/22 17:31 109/62 12/31/22 17:31 85 16 12/31/22 17:30 94 H 17 12/31/22 17:13 95/59 L 12/31/22 17:13 83 19 12/31/22 17:00 69 17 12/31/22 16:30 73 16 12/31/22 16:30 110/66 12/31/22 16:00 79 20 12/31/22 16:00 113/81 12/31/22 15:57 80 19 12/31/22 16:39 82 12/31/22 15:45 84 16 104/66 12/31/22 15:43 12/31/22 15:21 36.6 C 98 H 18 115/82 Pulse Ox O2 Del Method O2 Flow Rate 01/01/23 12:50 97 Room Air 01/01/23 12:40 98 Room Air 01/01/23 12:33 99 Nasal Cannula 3 01/01/23 11:12 99 Room Air 01/01/23 07:10 95 Room Air 01/01/23 04:28 99 Room Air 12/31/22 22:25 98 Room Air 12/31/22 21:00 100 12/31/22 21:00 12/31/22 20:30 78 L 12/31/22 20:30 12/31/22 20:00 100 12/31/22 20:00 12/31/22 19:30 98 12/31/22 19:03 12/31/22 18:30 99 12/31/22 18:30 12/31/22 18:00 100 12/31/22 18:00 12/31/22 17:31 12/31/22 17:31 100 12/31/22 17:30 100 12/31/22 17:13 12/31/22 17:13 99 12/31/22 17:00 100 12/31/22 16:30 100 12/31/22 16:30 12/31/22 16:00 99 12/31/22 16:00 12/31/22 15:57 97 12/31/22 16:39 12/31/22 15:45 99 Room Air 12/31/22 15:43 97 Room Air 12/31/22 15:21 100 Pain Intensity Left Flank: Pain Intensity: 5 Transfer of Care Handoff Completed per policy Notes Mental Status: alert / awake / arousable Patient Amnestic to Procedure: Yes Nausea / Vomiting: adequately controlled Pain: adequately controlled Airway Patency, RR, SpO2: stable & adequate BP & HR: stable & adequate Hydration State: stable & adequate Anesthetic Complications: no major complications apparent
--- NOTE | 2023-01-01 13:15 | Fluoroscopy Report ---
FL retrograde includes kub CLINICAL HISTORY: LTleft-sided cystourethrogram COMPARISON STUDY: None FLUOROSCOPY TIME: 12.2 seconds FLUOROSCOPY IMAGES: 6 EXPOSURE DOSE: 1.47 mGy FINDINGS: A left-sided ureteroscope is present with guidewire. Pressure injection of contrast demonst rates mild hydronephrosis. Possible extravasation of contrast outside the renal collecting system. [place] bsequent images demonstrate placement of a ureteral stent which appears to be in satisfactory positio radha. IMPRESSION: Fluoroscopic assistance as above. ACT 112: Negative or not required by law. Electronically signed by: Simon Moore M.D. 01/01/2023 1:13 PM
--- NOTE | 2023-01-01 15:29 | Discharge Summary ---
Date of Service January 01, 2023 Admission HPI Per Admitting Provider Nga Gamez is a 42 year old female who presents to the ER with left sided flank pain and hematuria. She reports symptoms started last Sunday when she woke up with blood in urine with no pain at that time. Because she had no pain she waited until Sunday to go to urgent care and UA was not suggestive of infection. They recommended going to the emergency room if she had any pain. Her left sided flank pain started on Sunday with severe pain for 20 minutes - because it subsided she decided to stay home again. Since then she has had intermittent hematuria episodes. This morning she woke up in such severe pain so went to [facility]'s [place] emergency room. She was diagnosed with a 7mm distal obstructing ureterolithiasis. No urology cover was available therefore she was sent home with pain medications and tamsulosin and advised to follow up with urology. She reports constant pain all of today with only slight relief from intravenous pain medication. It is the worst pain she has ever had, sever ity 10/10. Associated hematuria, nausea, vomiting, chills but no objective fever. No dysuria. Due to persistent pain she came back to the ER here due to urology coverage. Principal Diagnosis Obstructing left ureter calculus and colic, left hydronephrosis Discharge Exam General-alert and oriented x3, no fevers, no chills HEENT-head atraumatic and normocephalic, pupils equal and reactive to light, extraocular muscles intact Neck-no lymphadenopathy or thyromegaly, trachea midline Chest-clear to auscultation percussion. No rales wheezing or rhonchi Cardiac-regular rate and rhythm, normal S1 and S2 Abdomen-normal bowel sounds, nontender, no hepatosplenomegaly Extremities-no cyanosis, clubbing, or edema Neuro-cranial nerves II through XII intact, motor and sensory function within normal limits, strength symmetrical , no focal deficits Psych-normal affect, normal mood Discharge Data Allergies Allergy/AdvReac Type Severity Reaction Status Date / Time carbamazepine [From Tegretol] Allergy Severe Anaphylaxis Verified 12/31/22 17:21 Consultations 12/31/22 18:26 ED Decision to Admit Stat 12/31/22 23:20 Consult Urology Routine Procedures Performed Operation Date: 01/01/23 09:40 Actual Procedures p Cystoscopy, Left Retrograde Pyelogram, Left Stent Placement, Stone Basket Extraction.(Left) - Sagar Calderon, DO Ordered Studies 01/01/23 07:51 US renal/blad retro comp Stat 01/01/23 13:00 FL retrograde includes kub Routine Hospital Course (1) Left ureteral calculus: 7mm obstructing left ureter stone with resultant left hydronephrosis. Urology consultation appreciated. Cystoscopy and left stent placement completed today, January 01. Intravenous Cipro was given preoperatively and will continue orally postoperatively for several days. She states she has Flomax at home from previous ER visit that she will continue to take. She will follow-up with urology in 5 days for stent removal. (2) Hydronephrosis of left kidney: Monitor intake and output. Daily renal function. Plan Home todayJanuary 01 Total Time Total Time Spent Total Time Spent (In Minutes): 40 minutes Discharge Plan Discharge Items Patient Disposition: Home - Self-Care Reason For Visit: URETEROLITHIASIS WITH HYDRONEPHROSIS Discharge Diagnosis: Left ureter calculus and colic, left hydronephrosis Condition on Discharge: Good Activity: Resume your previous activity Non-emergency contact: Primary Care Provider and Urologist Call non-emergency contact if: you have any medication questions and your symptoms worsen Follow-up/Referrals: Rio Mcdonald D.O. [Primary Care Provider] - Diet: Regular Addtl Attending Provider Instructions: Take Cipro 500 mg twice daily for 1 week. Take Flomax 0.4 mg daily for 1 week Pending Studies at Discharge: No Stand-Alone Forms: [employer], Smoking Cessation Medications and DC Order Prescriptions: New ciprofloxacin HCl [Cipro] 500 mg tablet 500 mg PO BID Qty: 10 0RF tamsulosin 0.4 mg Capsule 0.4 mg PO DAILY Qty: 0 0RF Continued meclizine 25 mg tablet 25 mg PO Q6H PRN (Reason: Dizziness) azelastine 137 mcg (0.1 %) aerosol,spray 1 spray INTRANASAL BID PRN (Reason: Congestion) semaglutide 0.25 mg or 0.5 mg (2 mg/3 mL) Pen Injector 0 mg SUBCUT WK Rx Instructions: SUNDAYS--PT UNSURE OF DOSE/STRENGTH. Discharge Orders: Discharge Order (Routine); Ordered 01/01/23 Ordered By: Chivo Regalado Admission Data Admit Date/Time: 12/31/22 18:32 Attending Provider: Chivo Regalado Admit Provider: Isac Mauro Primary Care Provider: Rio Mcdonald Other Providers: Isac Mauro ; Huy Whitaker Coding Level of Care Code 10616 INP/OBS DISCH >30 MIN Diagnoses Left ureteral calculus N20.1 Hydronephrosis of left kidney N13.30
== END 2023-01-01 16:20 | disposition home or self-care (01) | DRG 661 ==
LOC: ED 15:18 → 3N 18:32 → SUATTDRO 18:32 → 3N 21:29